=== PATIENT | female | born 1990 | race Caucasian/White ===

== ENCOUNTER → 2021-07-26 10:00 | Outpatient (BNVA) | payer OTHER, SELFPAY | PROVIDERS: PCP Nurse Practitioner Family; Visit Provider Nurse Practitioner Family | DX: F32.9 Major depressive disorder, single episode, unspecified (principal); R53.83 Other fatigue | CPT/HCPCS: 80053; 80061; 82306; 82607; 83036; 84443 ==

== ENCOUNTER 2021-11-25 11:59 | Outpatient (CLI) | payer OTHER, SELFPAY ==
--- NOTE | 2021-11-25 12:05 | XR_ITS ---
WS: [id number] Exam: XR lumbar spine 2-3V* [id number] Date/Time of Exam: 11/25/2021 12:05 PM Reason For Exam: Back pain Comparison 12/29/2008. No fracture or dislocation. Disc spaces are preserved. Posterior elements are intact. Slight levoscol iosis that is probably positional. Spinous and transverse processes are normal in appearance. XR/XR lumbar spine 2-3V* [id number] IMPRESSION: 1. Unremarkable lumbar spine study.
== END 2021-11-25 12:00 | disposition home or self-care (01) ==
LOC: RAD 12:05
PROVIDERS: PCP Nurse Practitioner Family; Visit Provider Nurse Practitioner Family
DX: M54.50 Low back pain, unspecified (principal)
CPT/HCPCS: 72100

== ENCOUNTER 2021-12-02 12:21 | Outpatient (CLI) | payer OTHER, SELFPAY ==
--- NOTE | 2021-12-02 | MRR_ITS ---
PROCEDURE INFORMATION: Exam: MR Lumbar Spine Without Contrast Exam date and time: 12/02/2021 5:56 PM Age: 31 years old Clinical indication: Low back pain and lumbago with sciatica; Patient HX: PT describes acute low back pain that turned unbearable overnight. Sever pain into her legs. ; Additional info: Lbp TECHNIQUE: Imaging protocol: Multiplanar magnetic resonance images of the lumbar spine without intravenous contrast. COMPARISON: CR XR lumbar spine 2-3V* [id number] 11/25/2021 12:07 PM FINDINGS: Vertebrae: The vertebral body alignment and stature is maintained. No fracture or subluxation. Mild degenerative endplate signal changes at L5-S1. Spinal cord: Normal signal. No cord compression. L1-L2: No significant disc disease. No significant spinal canal stenosis. No neural foraminal stenosis. L2-L3: No significant disc disease. No significant spinal canal stenosis. No neural foraminal stenosis. L3-L4: Mild posterior disc bulge with a small central disc protrusion. No foraminal stenosis. Mild central canal stenosis. L4-L5: Mild posterior disc bulge with small central disc protrusion. No foraminal stenosis. Mild central canal stenosis. L5-S1: Large left paracentral protrusion with cranial extrusion measuring 1.3 cm in length. Moderate stenosis of the central left neural foramen. No right foraminal stenosis. Moderate-severe central canal stenosis. Soft tissues: Unremarkable. Technique issues: The axial T2 sequence is not properly synchronized with the sagittal sequences, possibly due to patient movement or a technical error. The axial images do not extend through the L5-S1 level. The patient would not allow the study to be completed due to severe pain. MR/MR lumbar spine wo con* [id number] IMPRESSION: 1. Large left paracentral disc protrusion at L5-S1 with a large cranial extrusion. This contributes to moderate-severe central canal stenosis and moderate stenosis of the central left neural foramen. 2. Evaluation of the L5-S1 level is incomplete with no axial images through this region. The study was discontinued early due to severe patient pain. Repeat axial images through the L5-S1 region is recommended, when patient is able. 3. Small central disc protrusions at L3-L4 and L4-L5.
== END 2021-12-02 12:22 | disposition home or self-care (01) ==
LOC: RAD 12:23 → RADSHAW 12:24
PROVIDERS: PCP Nurse Practitioner Family; Visit Provider Nurse Practitioner Family
DX: M54.16 Radiculopathy, lumbar region (principal); M51.27 Other intervertebral disc displacement, lumbosacral region; M51.26 Other intervertebral disc displacement, lumbar region
CPT/HCPCS: 72148

== ENCOUNTER 2021-12-02 14:09 | Emergency (ER) | payer OTHER, SELFPAY ==
[2021-12-02 14:13] VITALS: PULSE 126; RESP 16; TEMP 36.7; O2SAT 94
[2021-12-02] MEDS: ketorolac 30 mg/mL INJ IVP (14:59)
[2021-12-02] MEDS: ondansetron 2 mg/ML SDV 2 mL 4 MG IVP (15:00)
[2021-12-02] MEDS: orphenadrine 30 mg/mL Inj 2 mL 60 MG IVP (15:04)
[2021-12-02] MEDS: dexamethasone 10 mg/mL INJ IVP (15:05)
--- NOTE | 2021-12-02 15:40 | W.ED.BACK ---
HPI - Back Pain/Injury General: Chief Complaint: Back Pain/Injury Stated Complaint: back pain Time Seen by Provider: 12/02/21 14:36 History of Present Illness: 31-year-old female presents emergency room with right leg radicular pain she has noticed a foot drop as well as numbness and tingling and shooting pains leg. This been going on for some time she was to have an MRI today and her back pain became severe she could not tolerate lying in the MRI presented to the emergency room. She has been given steroids recently which seemed to help briefly she is on a Medrol Dosepak and her pain is been worsening. She not previous any surgery no recent traumatic injury. MD elicited complaint: back pain Pertinent past history: prior back pain Onset (ago): week(s) Timing: intermittent Severity: severe Similar Symptoms Previously: Yes Quality: sharp Location: lumbar spine Radiation: right upper leg and right leg below the knee Exacerbating factors: none Relieving factors: none Associated symptoms: Reports tingling/numbness/burning and weakness; Deny abdominal pain, arthralgias, chills, change in bowel habits, difficulty walking, dysuria, fatigue, fecal incontinence, fever(s), hematuria, myalgias, nausea, numbness, syncope, urinary frequency, urinary urgency or vomiting Treatments prior to arrival: NSAIDS and other medications (Steroids muscle relaxer) Review of Systems Const: Denies: fever(s), chills or fatigue ENMT: Denies: throat pain, ear or mastoid pain, nasal discharge or nasal congestion Card: Denies: syncope Resp: Denies: dyspnea, productive cough or non-productive cough GI: Denies: abdominal pain, nausea, vomiting, fecal incontinence or change in bowel habits : Denies: dysuria, urinary urgency or hematuria Skin/Breast: Denies: rash or pruritus Neuro: Denies: difficulty walking PFSH ED PFSH: Medical History Anxiety and depression No pertinent past medical history Surgical History H/O: Social History Smoking and tobacco status: former smoker History of recent travel: No Physical Exam Const: COMMON NORMALS: no acute distress GENERAL APPEARANCE: cooperative and comfortable ORIENTATION/CONSCIOUSNESS: Yes awake, Yes oriented to person, Yes oriented to place and Yes oriented to time HENMT: COMMON NORMALS: normocephalic, atraumatic and hearing grossly normal bilaterally HEAD & SCALP: normocephalic and atraumatic Neck/C-Spine: COMMON NORMALS: no JVD Resp: COMMON NORMALS: normal respiratory effort, No retractions, No use of accessory muscles and clear to auscultation bilaterally AUSCULTATION: clear to auscultation bilaterally Cardio: COMMON NORMALS: no JVD, regular rate, regular rhythm and No murmurs present (Cardio) RATE: regular rate RHYTHM: regular rhythm Extremity: COMMON NORMALS: normal to inspection, capillary refill normal, no clubbing, cyanosis or edema, no calf tenderness and no pedal edema Neuro: SENSORIUM/ORIENTATION: Yes oriented to person, Yes oriented to place and Yes oriented to time OTHER: Deep tendon reflexes +2/4 at the left patellar tendon absent at the right patellar tendon patient has significant weakness with dorsiflexion of the great toe on the left. Right dorsum plantar flexion strength is normal there is mild loss of dorsiflexion in the right foot. Sensation decreased. Skin: COMMON NORMALS: no rashes or lesions noted GENERAL SKIN EXAM: no rashes or lesions noted Course Vital Signs: Vital signs: Vital Signs Temperature 98.0 F 12/02/21 14:13 Pulse Rate 126 H 12/02/21 14:13 Respiratory Rate 16 12/02/21 14:13 Pulse Oximetry 94 12/02/21 14:13 MDM - Back Pain/Injury Medical Decision Making Patient initially was over an MRI and was unable to tolerate came here for pain control pain is improved and under control of her multiple medications given we will discharge her from the ER back to outpatients to complete her MRI outpatient prescriptions given. Medical Records I reviewed the patient's medical records. Discharge Plan Discharge Patient Disposition: Home Clinical Impression: Lumbar radiculopathy Condition: Stable Prescriptions: New hydrocodone-acetaminophen 10-325 mg tablet 1 tab PO Q6H PRN (Reason: pain) Qty: 30 0RF diclofenac sodium 75 mg tablet,delayed release (DR/EC) 75 mg PO Q12H PRN (Reason: pain) Qty: 20 0RF tizanidine 4 mg capsule 4 mg PO Q6H PRN (Reason: muscle spasticity) Qty: 30 0RF Rx Instructions: do not exceed 3 doses per 24 hrs Discontinued naproxen 500 mg tablet 500 mg PO BID Qty: 60 0RF prednisone 10 mg tablets,dose pack See Rx Instructions PO PER PKG DIR Qty: 21 0RF Rx Instructions: PO PER PKG DIR tramadol 50 mg tablet 50 mg PO Q4H PRN (Reason: pain) 7 Days Qty: 30 0RF Rx Instructions: one to two tabs every 4 hours as needed No Action Mirena 20 mcg/24 hours (6 yrs) 52 mg intrauterine device intrauterine 0RF ibuprofen 200 mg tablet 200 mg PO Q6H PRN (Reason: Pain) 0RF buspirone 7.5 mg tablet 7.5 mg PO BID Qty: 180 3RF Rx Instructions: 340 B Trintellix 10 mg tablet 10 mg PO DAILY Qty: 90 3RF lidocaine 5 % adhesive patch,medicated 2 patch topical DAILY Qty: 30 0RF Rx Instructions: leave on most painful area for up to 12 hrs hydrocodone-acetaminophen 5-325 mg tablet 1 - 2 tab PO .Q4-6H 7 Days Qty: 40 0RF Discharge Orders: Discharge ED (Routine); Ordered 12/02/21 Ordered By: Wily Cohen Referrals: Katharine Sierra FNP-C [Primary Care Provider] - Discharge Diet: Usual diet Discharge Activity: Limit activity as instructed Patient Instructions: Opioid Safety Activity Restrictions/Additional Instructions: No stooping bending or lifting. Do not carry more than 10 pounds follow-up with primary care doctor when your MRI is completed. Coding Level of Care Code ED Enterprise Resource Planning Consultant for Chg Fwd Exam Detailed
[2021-12-02] MEDS: morphine 4 mg/mL SDV 1 mL 8 MG IVP (15:51)
[2021-12-02] MEDS: morphine 4 mg/mL SDV 1 mL IVP (17:33)
[2021-12-02] MEDS: LORazepam 2 mg/mL INJ 1 mL IVP (17:33)
== END 2021-12-02 17:51 | disposition home or self-care (01) ==
PROVIDERS: Emergency Provider Family Medicine; PCP Nurse Practitioner Family
DX: M54.16 Radiculopathy, lumbar region (principal); Z87.891 Personal history of nicotine dependence
CPT/HCPCS: 96374; 96375; 96376; 99284; J1100; J1885; J2060; J2270; J2360; J2405

== ENCOUNTER 2021-12-02 18:44 | Observation (INO) | payer OTHER, SELFPAY ==
[2021-12-02 18:49] VITALS: BP 113/60; PULSE 71; RESP 14; TEMP 36.6; O2SAT 95; BMI 27.3
--- NOTE | 2021-12-02 18:53 | ED_ITS ---
HPI - Back Pain/Injury General: Chief Complaint: Back Pain/Injury Stated Complaint: back pain Time Seen by Provider: 12/02/21 18:46 History of Present Illness: Healthy 31-year-old female has been dealing with lower back pain. She was seen earlier in the ER after having not been able to tolerate an MRI scan of her lumbar spine she was set up for as an outpatient today. She was given pain medication and discharge so that she could finish her procedure. She returns after her MRI is done, with similar complaints of lower back and left lower extremity pain. She states that most of her pain in her back is gone currently, but her left lower extremity feels like a marshmallow . She has been having symptoms of foot drop as well. Pain has been uncontrollable despite pain medication. She has a significant herniation on MRI completed today MD elicited complaint: back pain Onset (ago): week(s) Timing: progressively worsening Severity: severe Quality: burning and aching Location: lumbar spine Radiation: right leg below the knee Relieving factors: medication Associated symptoms: Reports nausea, numbness and tingling/numbness/burning; Deny abdominal pain, chills, change in bowel habits, fecal incontinence, fever(s), urinary frequency, urinary urgency or vomiting Review of Systems Const: Denies: fever(s) or chills Card: Denies: chest pain or palpitations GI: Reports: nausea; Denies: abdominal pain, vomiting, fecal incontinence or change in bowel habits : Denies: urinary urgency [facility] ED PFSH: Medical History No pertinent past medical history Social History Smoking and tobacco status: former smoker History of recent travel: No Physical Exam Const: GENERAL APPEARANCE: cooperative, in distress (from pain) and ill appearing; not comfortable HENMT: COMMON NORMALS: normocephalic HEAD & SCALP: normocephalic Course Consultations: Consultation #1: maria teresa Time: 19:44 Consultation #2: dionte Time: 19:55 Vital Signs: Vital signs: Vital Signs Temperature 97.8 F 12/02/21 18:49 Pulse Rate 71 12/02/21 18:49 Respiratory Rate 14 12/02/21 18:49 Blood Pressure 113/60 12/02/21 18:49 Pulse Oximetry 95 12/02/21 18:49 MDM - Back Pain/Injury Medical Decision Making Exam is essentially unchanged from her previous ER visit. She is alert and talking. She has intractable pain. She has symptoms of weakness to her left lower extremity. She will be observed for intractable back pain. Orthopedic spine surgery has been consulted for their opinion as well Discharge Plan Discharge Patient Disposition: Placed in Observation Clinical Impression: Lumbar radiculopathy Condition: Stable Prescriptions: No Action Mirena 20 mcg/24 hours (6 yrs) 52 mg intrauterine device intrauterine 0RF ibuprofen 200 mg tablet 200 mg PO Q6H PRN0RF buspirone 7.5 mg tablet 7.5 mg PO BID Qty: 180 3RF Rx Instructions: 340 B Trintellix 10 mg tablet 10 mg PO DAILY Qty: 90 3RF lidocaine 5 % adhesive patch,medicated 2 patch topical DAILY Qty: 30 0RF Rx Instructions: leave on most painful area for up to 12 hrs tizanidine 4 mg tablet 4 mg PO TID PRN (Reason: muscle spasticity) Qty: 20 0RF prednisone 20 mg tablet 20 mg PO TID Qty: 15 0RF Rx Instructions: 20 mg 3 times daily x3 days, 20 mg twice daily x2 days, 20 mg daily x2 days Lyrica 75 mg capsule 75 mg PO BID Qty: 60 0RF hydrocodone-acetaminophen 10-325 mg tablet 1 tab PO Q6H PRN (Reason: pain) Qty: 30 0RF diclofenac sodium 75 mg tablet,delayed release (DR/EC) 75 mg PO Q12H PRN (Reason: pain) Qty: 20 0RF tizanidine 4 mg capsule 4 mg PO Q6H PRN (Reason: muscle spasticity) Qty: 30 0RF Rx Instructions: do not exceed 3 doses per 24 hrs Referrals: Katharine Sierra FNP-C [Primary Care Provider] - Coding Level of Care Code ED International Recruiter for Chg Fwd Exam Expanded Problem Focused
[2021-12-02] MEDS: morphine 4 mg/mL SDV 1 mL IVP (19:37)
[2021-12-02] MEDS: ondansetron 2 mg/ML SDV 2 mL 4 MG IVP (19:37)
--- NOTE | 2021-12-02 20:10 | PM.HP ---
Providers/Chief Complaint Primary Care Provider: Katharine Sierra, BISHOPC Chief Complaint: back pain History of Present Illness Graciela Huff is a 31 year old female with a past medical history of anxiety depression, who presents to [facility] due to uncontrolled back pain, with numbness down the left lower extremity, slight weakness of left lower extremity. Patient tells me that she had back pain for roughly a week, with mild lifting, no significant back injuries, no car accidents, she had a lumbar x-ray on the , with a Toradol shot, has been on opiates, muscle relaxers and steroids as outpatient. However her pain continued to worsen, pain with ambulation, now developing significant lower back pain, radiating left lower extremity, with numbness down the left lower extremity, with slight left foot drop and left lower extremity weakness. No saddle paresthesia. No urinary or bowel incontinence. No fevers. No paraspinal tenderness. No dysuria, no hematuria, no history of UTIs, denies being Review of Systems Const: Denies: fever(s), chills, fatigue or malaise Eyes: Denies: change in vision or blurry vision ENMT: Denies: nasal congestion Resp: Denies: dyspnea, productive cough, non-productive cough or wheezing GI: Denies: abdominal pain, nausea, vomiting, hematemesis, diarrhea, constipation, hematochezia or melena : Denies: flank pain, difficulty voiding, dysuria, urinary frequency, urinary hesitancy or urinary incontinence Musc: Reports: back pain and extremity pain; Denies: neck pain Skin/Breast: Denies: rash Neuro: Reports: numbness in extremities, weakness in extremities and sensory changes; Denies: headache(s), dizziness or vertigo Psych: Denies: anxiety or depression Endo: Denies: polyuria or polydipsia Medications/Allergies Home Medications Medication Instructions Recorded Confirmed Last Taken Type levonorgestrel 20 mcg/24 hours (6 INTRAUTERINE 07/26/21 11/25/21 Unknown History yrs) 52 mg intrauterine device (Mirena) buspirone 7.5 mg tablet 7.5 mg PO BID #180 tab 10/12/21 11/25/21 Unknown Rx vortioxetine 10 mg tablet 10 mg PO DAILY #90 tab 10/12/21 11/25/21 Unknown Rx (Trintellix) ibuprofen 200 mg tablet 200 mg PO Q6H PRN 11/25/21 11/25/21 Unknown History lidocaine 5 % topical patch 2 patch TOPICAL DAILY #30 ea 11/28/21 Unknown Rx tizanidine 4 mg tablet 4 mg PO TID PRN #20 tab 11/28/21 Unknown Rx diclofenac sodium 75 mg 75 mg PO Q12H PRN #20 tab 12/02/21 Unknown Rx tablet,delayed release hydrocodone 10 mg-acetaminophen 1 tab PO Q6H PRN #30 tab 12/02/21 Unknown Rx 325 mg tablet prednisone 20 mg tablet 20 mg PO TID #15 tab 12/02/21 Unknown Rx pregabalin 75 mg capsule (Lyrica) 75 mg PO BID #60 cap 12/02/21 Unknown Rx tizanidine 4 mg capsule 4 mg PO Q6H PRN #30 cap 12/02/21 Unknown Rx Allergies Allergy/AdvReac Type Severity Reaction Status Date / Time No Known Allergies Allergy Verified 12/02/21 14:16 PFSH Acute PFSH: Medical History (Updated 12/02/21 @ 20:21 by Rene Vidal MD) Anxiety and depression No pertinent past medical history Surgical History (Updated 12/02/21 @ 20:21 by Rene Vidal MD) H/O: Social History Smoking and tobacco status: former smoker History of recent travel: No Vitals/I&O/Wt Last Vital Signs Temp 97.8 F 12/02/21 18:49 Pulse 71 12/02/21 18:49 Resp 14 12/02/21 18:49 BP 113/60 12/02/21 18:49 Pulse Ox 95 12/02/21 18:49 Weight last 48 hrs Weight 79.379 kg Physical Exam Const: COMMON NORMALS: no acute distress and patient oriented x3 HENMT: COMMON NORMALS: normocephalic HEAD & SCALP: normocephalic Resp: COMMON NORMALS: normal respiratory effort, No retractions, No use of accessory muscles and clear to auscultation bilaterally AUSCULTATION: clear to auscultation bilaterally Cardio: COMMON NORMALS: regular rate, regular rhythm, S1 normal heart sound present and S2 normal heart sound present RATE: regular rate RHYTHM: regular rhythm HEART SOUNDS: S1 normal heart sound present and S2 normal heart sound present GI: COMMON NORMALS: Normal to inspection, nondistended, normoactive bowel sounds present, Soft to palpation, non-tender, No hepatosplenomegaly present, no masses and no bruits PALPATION: Yes Soft to palpation and Yes No hepatosplenomegaly present Back/Pelvis: GENERAL BACK: No CVA tenderness THORACIC SPINE/UPPER BACK: Yes normal to inspection, Yes thoracic ROM normal, No pain with ROM and No thoracic spinal tenderness LUMBAR SPINE/LOWER BACK: Yes normal to inspection, Yes ROM limited, Yes pain with ROM, Yes paraspinal muscle tenderness and Yes paraspinal muscle spasm Extremity: COMMON NORMALS: capillary refill normal, no clubbing, cyanosis or edema, no calf tenderness and no pedal edema Neuro: COMMON NORMALS: patient oriented x3 CRANIAL NERVES: Yes CN normal except as noted OTHER: Neurological exam, numbness and tingling extending from left thigh inner outer thigh down to the left knee, down to left ankle down to her toes of the left foot, no saddle or perianal anesthesia, no urinary or bowel incontinence, slight left foot drop, strength in lower extremity 4 out of 5, strength in the thigh 4-5 Psych: COMMON NORMALS: mental status grossly normal A&P Assessment and plan (1) Lumbar radiculopathy: Status: Acute (2) Uncontrolled pain: Status: Acute Plan lumbar radiculopathy with disc protrusion, uncontrolled pain 1. Large left paracentral disc protrusion at L5-S1 with a large cranial extrusion.? This contributes to moderate-severe central canal stenosis and moderate stenosis of the central left neural foramen. 2. Evaluation of the L5-S1 level is incomplete with no axial images through this region.? The study was discontinued early due to severe patient pain.? Repeat axial images through the L5-S1 region is recommended, when patient is able.? 3. Small central disc protrusions at L3-L4 and L4-L5.? PLAN: -dilauded 0.5mg q4hrs as needed,, flexeril 10mg q8hrs prn -continue buspar, lyrica, diclofenac -neurochecks, monitor for alarm symptoms -consult Dr. Lyman -full code -Lovenox for dvt ppx -NPO midnight Attestations Medical Necessity Statement*: patient requires hospitalization for lumbar radiculopathy, uncontrolled pain, outpatient with observation, Coding Level of Care Code Acute Eyelet Machine Operator for Pastora Fwd History Detailed Exam Detailed Medical Decision Making Moderate Complexity Diagnoses Lumbar radiculopathy M54.16 Uncontrolled pain R52 Time Spent (min) 55
[2021-12-02] MEDS: orphenadrine 30 mg/mL Inj 2 mL 60 MG IVP (20:45)
[2021-12-02] MEDS: pregabalin 75 mg Capsule PO (20:45)
[2021-12-02 22:57] VITALS: BP 107/69; PULSE 82; RESP 16; TEMP 36.9; O2SAT 93
[2021-12-02] MEDS: sodium chloride 0.9% 1,000 ML 75 ML IV (23:16)
[2021-12-02 23:17] VITALS: RESP 16
[2021-12-02] MEDS: HYDROmorphone 1 mg/mL INJ 1 mL 0.5 MG IVP (23:17)
[2021-12-02] MEDS: enoxaparin 40 mg/0.4 mL Syringe SUBCUT (23:17)
[2021-12-02] MEDS: cyclobenzaprine 10 mg Tablet PO (23:17)
[2021-12-03] VITALS (12 sets, daily range): BP systolic 105–138; BP diastolic 60–74; PULSE 57–97; RESP 14–18; TEMP 36.2–36.8; O2SAT 95–99
--- NOTE | 2021-12-03 | SCC_ITS ---
Procedure done: 1. Left L5/S1 laminectomy with partial facetectomy and diskectomy 7.2 seconds of fluoroscopic guidance, for a cumulative dose of 2.02 mGy, was provided to Dr. Lyman by the radiology department. No permanent C-shruthi images were obtained. MTDD
--- NOTE | 2021-12-03 05:06 | PC.NURSE ---
Per RN, patient not disturbed for vitals.
[2021-12-03 06:48] LABS: Basophils % 0.1 %; Eosinophils % 0.1 %; Hematocrit 40.9 % (37.0-47.0); Hemoglobin 13.6 g/dL (11.5-15.3); Lymphocytes # 2.4 10^3/uL (0.8-4.8); Lymphocytes % 17.5 %; Mean Corpuscular HGB Conc 33.3 g/dL (30.0-36.0); Mean Corpuscular Hemoglobin 30.4 pg (28.0-34.0); Mean Corpuscular Volume 91.5 fl (81-99); Mean Platelet Volume 11.5 fL (7.4-10.4); Monocytes # 0.7 10^3/uL (0.2-0.9); Monocytes % 5.1 %; Neutrophils # 10.26 10^3/uL (1.8-7.7); Neutrophils % 76.5 %; Nucleated Red Blood Cells % 0 %; Platelet Count 256 10^3/cmm (130-400); Red Blood Count 4.47 10^6/uL (4.1-5.3); Red Cell Distribution Width 12.1 % (12.1-15.1); White Blood Count 13.4 10^3/uL (4.0-10.0)
[2021-12-03 07:22] LABS: Alanine Aminotransferase 9 U/L (0-33); Albumin Level 3.6 g/dL (3.5-5.2); Alkaline Phosphatase 33 IU/L (35-105); Anion Gap 17.4 (5-19); Aspartate Amino Transferase 11 U/L (0-32); Blood Urea Nitrogen 18 mg/dL (6-20); Calcium 9.3 mg/dL (8.5-10.5); Carbon Dioxide 20 mmol/L (22-29); Chloride 102 mmol/L (98-107); Glomerular Filtration Rate 116.6 mL/min (90-130); Glucose 94 mg/dL (65-115); Magnesium 2.1 mg/dL (1.7-2.3); Osmolality Calculated 282 mOsm/kg (285-295); Phosphorus 4.1 mg/dL (2.5-4.5); Potassium 4.4 mmol/L (3.5-5.1); Sodium 135 mmol/L (136-145); Thyroid Stimulating Hormone 0.62 uIU/mL (0.27-4.20); Total Bilirubin 0.3 mg/dL (0.15-1.2); Total Protein 5.6 g/dL (6.6-8.7)
[2021-12-03] MEDS: ondansetron 2 mg/ML SDV 2 mL 4 MG IVP (07:56)
[2021-12-03] MEDS: HYDROmorphone 1 mg/mL INJ 1 mL 0.5 MG IVP (07:57)
--- NOTE | 2021-12-03 08:13 | P.CONIM_ITS ---
Providers/Reason For Consult Consulting Physician/Specialty*: Orthopedic Spine Reason for Consult*: Back and left leg pain Attending Physician: Tracey Stewart MD Primary Care Provider: EULALIA Navarrete History of Present Illness History of Present Illness Graciela Huff is a 31 year old female who presented to [facility] complaining of increased low back left lower extremity pain that is been progressively worsening over the last week. 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 She was evaluated on [facility] room 260. She continues to complain of low back pain with left leg weakness which has been constant. Medications since her admission is given her some reasonable relief. She has noticed difficulties with starting and stopping with her bowel and bladder. Denies any saddle paresthesias. Pain travels down the left leg in the L5-S1 distribution. She ranks the pain as 10 out of 10 whitout medications. Rest gives her some temporary relief, medications have given her better t emporary relief. She has tried some conservative stretching exercises leading up to this latest flareup of her low back but has been unable to tolerate the pain. An extensive review of the patient's past medical history, surgical history, allergies, medications, family history, social history, and review of systems was completed Review of Systems Const: Denies: fever(s), chills, fatigue or malaise Eyes: Denies: change in vision or blurry vision ENMT: Denies: nasal congestion Resp: Denies: dyspnea, productive cough, non-productive cough or wheezing GI: Denies: abdominal pain, nausea, vomiting, hematemesis, diarrhea, constipation, hematochezia or melena : Denies: flank pain, difficulty voiding, dysuria, urinary frequency, urinary hesitancy or urinary incontinence Musc: Reports: back pain and extremity pain; Denies: neck pain Skin/Breast: Denies: rash Neuro: Reports: numbness in extremities, weakness in extremities and sensory changes; Denies: headache(s), dizziness or vertigo Psych: Denies: anxiety or depression Endo: Denies: polyuria or polydipsia Medications/Allergies Home Medications Medication Instructions Recorded Confirmed Last Taken Type levonorgestrel 20 mcg/24 hours (07/26/21/21/22 Unknown History yrs) 52 mg intrauterine device (Mirena) buspirone 7.5 mg tablet 7.5 mg PO BID #180 tab 10/12/21 12/03/21 Unknown Rx vortioxetine 10 mg tablet 10 mg PO DAILY #90 tab 10/12/21 12/03/21 12/02/21 Rx (Trintellix) ibuprofen 200 mg tablet 200 mg PO Q6H PRN 11/25/21 12/03/21 12/02/21 History lidocaine 5 % topical patch 2 patch TOPICAL DAILY #30 ea 11/28/21 12/03/21 Unknown Rx diclofenac sodium 75 mg 75 mg PO Q12H PRN #20 tab 12/02/21 12/03/21 12/02/21 Rx tablet,delayed release hydrocodone 10 mg-acetaminophen 1 tab PO Q6H PRN #30 tab 12/02/21 12/03/21 12/02/21 Rx 325 mg tablet prednisone 20 mg tablet 20 mg PO TID #15 tab 12/02/21 12/03/21 12/02/21 Rx pregabalin 75 mg capsule (Lyrica) 75 mg PO BID #60 cap 12/02/21 12/03/21 12/02/21 Rx tizanidine 4 mg capsule 4 mg PO Q6H PRN #30 cap 12/02/21 12/03/21 12/02/21 Rx Allergies Allergy/AdvReac Type Severity Reaction Status Date / Time No Known Allergies Allergy Verified 12/02/21 14:16 Current Medications Generic Name Dose Route Start Last Admin Trade Name Jaymeq PRN Reason Stop Dose Admin Cyclobenzaprine HCl 10 mg 12/02/21 22:48 12/02/21 23:17 Cyclobenzaprine 10 Mg Tablet PO 10 mg TID PRN Administration MUSCLE SPASMS Enoxaparin Sodium 40 mg 12/02/21 23:00 12/02/21 23:17 Enoxaparin 40 Mg/0.4 Ml Syringe SUBCUT 40 mg Q24H DIYA Administration Hydromorphone HCl 0.5 mg 12/02/21 22:48 12/03/21 07:57 Hydromorphone 1 Mg/Ml Inj 1 Ml IVP 0.5 mg Q4H PRN Administration PAIN Sodium Chloride 1,000 mls @ 75 mls/hr 12/02/21 22:48 12/02/21 23:16 Sodium Chloride 0.9% IV 75 mls/hr .[id number] DIYA Administration Ondansetron HCl 4 mg 12/02/21 22:48 12/03/21 07:56 Ondansetron 2 Mg/Ml Sdv 2 Ml IVP 4 mg Q8H PRN Administration vomiting, or N/V if npo PFSH Acute PFSH: Medical History Anxiety and depression No pertinent past medical history Surgical History H/O: Social History Smoking and tobacco status: former smoker History of recent travel: No Vitals/I&O/Wt Last Vital Signs Temp 98.3 F 12/03/21 07:22 Pulse 57 L 12/03/21 07:22 Resp 17 12/03/21 07:57 BP 105/67 12/03/21 07:22 Pulse Ox 96 12/03/21 07:22 12/02/21 12/03/21 12/03/21 22:59 06:59 14:59 Intake Total 240 / 240 Balance 240 / 240 Weight last 48 hrs Weight 175 lb Physical Exam Narrative: EXAM NARRATIVE: Patient is alert and oriented x3, mild acute distress Demonstrates raising up onto heels and toes with more difficulty on the left greater than right. Exhibits normal coordination and normal stability. Moderatepalpatory or perc ussion pain throughout the paraspinous musculature of the lumbar spine. Normal sensation to light touch through all dermatomal layers of the thoracic spine. Decreased sensation light touch down leftlower extremity, normal sensation on the right. 4/5 motor strength throughout L5 and Y4polub groups. 5/5 strength throughout the right lower extremity. No palpable pain over the SI joints bilaterally. Negative Mekhi and Fabere sign. Positive straight leg raise on the left negative on the right. Skin is clear warm with normal station light touch calves are supple with no medial thigh tenderness negative Homans' sign. No palpable lymphadenopathy bilaterally. Reflexes are 2+ and symmetric about the knees and Achilles. No hyperreflexia or clonus. Downgoing Babinski's bilaterally. Dorsalis pedis and posterior tibial pulses are 2+. No palpable edema bilaterally. Const: COMMON NORMALS: patient oriented x3 HENMT: COMMON NORMALS: normocephalic HEAD & SCALP: normocephalic Resp: COMMON NORMALS: normal respiratory effort Cardio: COMMON NORMALS: regular rate and regular rhythm RATE: regular rate RHYTHM: regular rhythm GI: COMMON NORMALS: Soft to palpation PALPATION: Yes Soft to palpation : COMMON NORMALS: Yes no CVA tenderness BLADDER/KIDNEY EXAM: Yes no CVA tenderness Back/Pelvis: COMMON NORMALS: no CVA tenderness Neuro: COMMON NORMALS: patient oriented x3 Psych: COMMON NORMALS: mental status grossly normal and cooperative Data : 12/03/21 05:35 12/03/21 05:35 Other data: Independent interpretation of the MRI scan was reviewed with the patient. There is no axial cut through the L5-S1 level but on the sagittal certainly shows a large extruded fragment more central and appearing left-sided at L5-S1. There is degenerative changes through the lumbar spine with small central disc herniations at L3-4 and L4-5. A&P Assessment and plan (1) Herniated nucleus pulposus, L5-S1, left: Discussed treatment options with her which involve physical therapy, nerve glides stretching activities. Second option would be outpatient transforaminal injection to the left at L5-S1. Third option would be lumbar discectomy L5-S1. Will discuss with Dr. Lyman have him follow-up with the patient to discuss treatment options. We will keep her n.p.o. for now until she makes that decision. Status: Acute (2) Lumbosacral radiculopathy at S1: Status: Acute Coding Level of Care Code New Pt Acute Medical Technologist Prn for g Fwd Patient Type New History Problem Focused Exam Problem Focused Medical Decision Making Moderate Complexity Diagnoses Herniated nucleus pulposus, L5-S1, left M51.27 Lumbosacral radiculopathy at S1 M54.17 Time Spent (min) 30
--- NOTE | 2021-12-03 09:02 | ANES.PREANE2 ---
Pre-Anesthetic Assessment Height/Weight: Height 1.7 m Weight 79.379 kg Temp Pulse Resp BP Pulse Ox 98.3 F 57 L 17 105/67 96 12/03/21 07:22 12/03/21 07:22 12/03/21 07:57 12/03/21 07:22 12/03/21 07:22 Operation Date: 12/03/21 12:00 Proposed Procedures p Lumbar Spine Decompression(Not Applicable) - Abdirizak Lyman, DO Was Beta Compa taken within 24 hours: N/A Was Clonidine taken within 24 hours: N/A Last intake: 12/02/2021 Social Alcohol and No tobacco Exam alert, oriented x 3, clear to auscultation bilaterally and regular rate & rhythm Airway Submandibular: within normal limits Cervical ROM: within normal limits Mallampati: Class I Dentition: full History/ROS No significant complaints Pulmonary None reported CV/HEM None reported None reported Hepatic None reported GI None reported Metabolic None reported Musc/skel Herniated lumbar disc with acute canal narrowing Neuropsych Anxiety and Depression Anesthetic Plan ASA status: 2 Anesthesia: General Other: We discussed risk of post operative blindness, peripheral nerve injury, sore throat, PONV, stroke, AK, , ICU admission with breathing tube, and recall. Patient agrees to proceed with general . Medications/Allergies Home Medications Medication Instructions Recorded Confirmed Last Taken Type levonorgestrel 20 mcg/24 hours (6 INTRAUTERINE 07/26/21 11/25/21 Unknown History yrs) 52 mg intrauterine device (Mirena) buspirone 7.5 mg tablet 7.5 mg PO BID #180 tab 10/12/21 12/03/21 Unknown Rx vortioxetine 10 mg tablet 10 mg PO DAILY #90 tab 10/12/21 12/03/21 12/02/21 Rx (Trintellix) ibuprofen 200 mg tablet 200 mg PO Q6H PRN 11/25/21 12/03/21 12/02/21 History lidocaine 5 % topical patch 2 patch TOPICAL DAILY #30 ea 11/28/21 12/03/21 Unknown Rx diclofenac sodium 75 mg 75 mg PO Q12H PRN #20 tab 12/02/21 12/03/21 12/02/21 Rx tablet,delayed release hydrocodone 10 mg-acetaminophen 1 tab PO Q6H PRN #30 tab 12/02/21 12/03/21 12/02/21 Rx 325 mg tablet prednisone 20 mg tablet 20 mg PO TID #15 tab 12/02/21 12/03/21 12/02/21 Rx pregabalin 75 mg capsule (Lyrica) 75 mg PO BID #60 cap 12/02/21 12/03/21 12/02/21 Rx tizanidine 4 mg capsule 4 mg PO Q6H PRN #30 cap 12/02/21 12/03/21 12/02/21 Rx Allergies Allergy/AdvReac Type Severity Reaction Status Date / Time No Known Allergies Allergy Verified 12/02/21 14:16 Current Medications Generic Name Dose Route Start Last Admin Trade Name Freq PRN Reason Stop Dose Admin Cyclobenzaprine HCl 10 mg 12/02/21 22:48 12/02/21 23:17 Cyclobenzaprine 10 Mg Tablet PO 10 mg TID PRN Administration MUSCLE SPASMS Enoxaparin Sodium 40 mg 12/02/21 23:00 12/02/21 23:17 Enoxaparin 40 Mg/0.4 Ml Syringe SUBCUT 40 mg Q24H DIYA Administration Hydromorphone HCl 0.5 mg 12/02/21 22:48 12/03/21 07:57 Hydromorphone 1 Mg/Ml Inj 1 Ml IVP 0.5 mg Q4H PRN Administration PAIN Sodium Chloride 1,000 mls @ 75 mls/hr 12/02/21 22:48 12/02/21 23:16 Sodium Chloride 0.9% IV 75 mls/hr .[id number] DIYA Administration Ondansetron HCl 4 mg 12/02/21 22:48 12/03/21 07:56 Ondansetron 2 Mg/Ml Sdv 2 Ml IVP 4 mg Q8H PRN Administration vomiting, or N/V if npo PFSH Anesthesia Medical History Anxiety and depression No pertinent past medical history Surgical History H/O: Social History Smoking and tobacco status: former smoker History of recent travel: No Data Anesthesia : 12/03/21 05:35 12/03/21 05:35 Short CBC 12/03/21 Range/Units 05:35 WBC 13.4 H (4.0-10.0) 10^3/uL Hgb 13.6 (11.5-15.3) g/dL Hct 40.9 (37.0-47.0) % MCV 91.5 (81-99) fl Plt Count 256 (130-400) 10^3/cmm Neut % (Auto) 76.5 % Neut # (Auto) 10.26 H (1.8-7.7) 10^3/uL BMP 12/03/21 05:35 Sodium 135 L Potassium 4.4 Chloride 102 Carbon Dioxide 20 L BUN 18 Creatinine 0.6 Glucose 94 Calcium 9.3 Liver Function 12/03/21 Range/Units 05:35 Total Bilirubin 0.3 (0.15-1.2) mg/dL AST 11 (0-32) U/L ALT 9 (0-33) U/L Alkaline Phosphatase 33 L (35-105) IU/L Albumin 3.6 (3.5-5.2) g/dL Cardiac Studies: No Data to Display
--- NOTE | 2021-12-03 11:33 | PC.PT ---
Pt was going to be seen and Dr. Lyman was coming out of the room. Pt is going to surgery. Pt is not going to be seen for PT at this time.
[2021-12-03] MEDS: midazolam 1 mg/mL INJ 2 mL 2 MG (13:01)
--- NOTE | 2021-12-03 13:11 | PC.NURSE ---
1310 verbalized to Will Smart LOG HANDLING EQUIPMENT OPERATOR negative HCG results.
--- NOTE | 2021-12-03 13:57 | ANE.PACU2 ---
Inpatient post-anesthesia follow up: Vital signs: Temperature 97.4 F Pulse Rate 62 Respiratory Rate 18 Blood Pressure 111/60 Pulse Oximetry 98 Oxygen Delivery Me thod Room Air Oxygen Flow Rate Fraction of Inspir ed Oxygen
--- NOTE | 2021-12-03 14:30 | P.OP_ITS ---
Operative Report Date of procedure: December 03, 2021 Pre-op diagnosis: L5/S1 left disk herniation with radiculopathy Post-op diagnosis: same Procedure done: 1. Left L5/S1 laminectomy with partial facetectomy and diskectomy Surgeon: Abdirizak Lyman Arboreal Scientist: Tae Stanton Arboreal Scientist: The neurosurgical physician assistant, Tae Stanton, ARMAND was needed for his expertise under the microscope. He was important and necessary throughout the procedure to complete in a safe and timely manner. He assisted with patient positioning pre pping and draping tissue retraction suctioning of the operative field protection of the dural sac and tissue closure Estimated blood loss (mL): 5 Procedure: 1. Left L5/S1 laminectomy with partial facetectomy and diskectomy Patient is brought to the operative suite. After undergoing anesthesia they are placed in the prone position. All areas of impingement are well padded. Patient is then prepped and draped in the normal sterile fashion. A skin incision is made over the L5/S1 level. This is confirmed under c-arm guidance. A series of dilators are passed and the tubular retractor is docked on the L5 lamina. A bovie is used to clear the soft tissue off the lamina and the L 5/S1 facet joint. A high speed aye is then used to perform the laminectomy and take down the medial aspect of the L 5/S1 facet joint. A kerrison rongeure was then used to take down the remaining lamina and smooth the edge of the laminectomy up to the point where the ligamentum flavum attaches. Attention was then brought to the medial aspect of the facet joint. The remaining medial aspect of the superior and inferior aspect of the facet joint were taken down with the kerrison from the pedicle of L5 to S1. Attention was then brought to the Ligamentum Flavum. The ligament was taken down from the lamina of L5 to S1 and out medially to the remaining facet joint. The ligament was thick. The dura was then exposed. The dura was in good repair. The S1 nerve was identified and retracted medially a large piece of disk was removed with micropituitary. The L5 nerve was then traced with a curette out the L5/S1 foramen and found to be adequately decompressed. The S1 nerve was traced with a curette around the S1 pedicle. The lateral recess was opened with a kerrison helping to further decompress the S1 nerve. Wound is then irrigated copiously with saline and surgiflo is used to stop any bleeding. The tubular retractor is removed and the wound is closed with vicryl and monocryl suture. Glue is then used to protect the wound. A sterile dressing is then placed. Patient was then placed in the supine position and transferred to the PACU in stable condition.
--- NOTE | 2021-12-03 16:20 | PC.CHAP ---
Pastoral Care Encounter/Spiritual Assessment Type of Contact [] Declined reel film inspector visit [] Patient/Family/Request visit [] Outpatient visit [] Follow-up visit [] Physician referral [] Code/Alert [] Routine visit [] Staff referral [] Actively dying [] Patient sleeping [] Family support [] [] Out of room [] Palliative care [] [XX] Receiving care in room [] Pre-surgical visit [] Trauma [] Long length of stay [] ICU visit [] Other: Relational/Emotional Strength [] Patient feels connected with others/family/visitors/staff [] Distress [] Loneliness/isolation [] Abandonment Spirituality of Patient [] Person of Sara [] Attends Samaritan of their Sara [] Believes in Prayer [] Reads Bible or Jewish materials [] There are Spiritual issues to be addressed Landscaper Interventions [] Prayer [] Active listening [] Non-anxious presence [] Spiritual/emotional support [] Crisis/trauma care [] Spiritual counseling [] Bereavement support [] Provided bereavement packet [] Provided Bible/devotional materials [] Provided toy/stuffed animal, coloring book to patient or family member [] Provided Communion [] Anointing/[place] [] Salvation [] Completed spiritual assessment [] Other: Impact on Illness or Injury [] Angry [] Fearful [] Anxious [] Often cries [] Exhaustion [] Unable to work [] Unable to attend caodaism [] Unable to walk/stand [] Unable to read [] Unable to drive [] Unable to eat/drink [] Unable to sleep [] Unable to be with family [] Patient intubated [] Other: Summary Time spent with patient
--- NOTE | 2021-12-03 18:08 | PM.DCS ---
Discharge Providers Date of Admission: 12/02/21 19:57 Date of Discharge: December 03, 2021 Attending Provider at Admission: Rene Vidal MD Attending Provider at Discharge: Tracey Stewart MD Primary Care Provider: EULALIA Navarrete Diagnoses at Discharge Discharge Diagnosis (1) Herniated nucleus pulposus, L5-S1, left: Status: Acute (2) Lumbosacral radiculopathy at S1: Status: Acute Reason for Visit Reason for Visit: back pain Hospital Course Hospital Course 31 year old female with a past medical history of anxiety, depression, presented to [facility] due to uncontrolled back pain, with numbness down the left lower extremity, slight weakness of left lower extremity. She was found to have Large left paracentral disc protrusion at L5-S1 with a large cranial extrusion. She underwent left L5/S1 laminectomy with partial facetectomy and diskectomy earlier today. She feel simproved after surgery, is able to ambulate independently, passing gas and able to urinate without difficulty. Has residual left lateral leg parasthesias but states that this is improving. She is eager to return home. Discussed with Dr. Lyman- there is no contraindication to discharge from a surgical or medicine standpoint at this time. To return to ER in case of urinary or bowel incontinence, saddle anesthesia, worsening LE weakness. Physical Exam Narrative: EXAM NARRATIVE: GEN: Awake, alert and oriented, no acute distress CVS: S1S2 N Abd: Soft, nt/nd ORTHOPEDICS NURSE: leg lateral leg parasthesias, mild foot drop Discharge Data Studies Completed and Pending Pending at discharge Category Date Time Status C-arm Fluoroscopy [id number] Routine Exams 12/03/21 13:12 Ordered Complete Blood Count w/Auto AM LABS Lab 12/04/21 04:00 Ordered Complete Blood Count w/Auto AM LABS Lab 12/05/21 04:00 Ordered Comprehensive Metabolic Panel AM LABS Lab 12/04/21 04:00 Ordered Comprehensive Metabolic Panel AM LABS Lab 12/05/21 04:00 Ordered Magnesium AM LABS Lab 12/04/21 04:00 Ordered Magnesium AM LABS Lab 12/05/21 04:00 Ordered Phosphorus AM LABS Lab 12/04/21 04:00 Ordered Phosphorus AM LABS Lab 12/05/21 04:00 Ordered Laboratory Results WBC 13.4 10^3/uL (4.0-10.0) H 12/03/21 05:35 RBC 4.47 10^6/uL (4.1-5.3) 12/03/21 05:35 Hgb 13.6 g/dL (11.5-15.3) 12/03/21 05:35 Hct 40.9 % (37.0-47.0) 12/03/21 05:35 MCV 91.5 fl (81-99) 12/03/21 05:35 MCH 30.4 pg (28.0-34.0) 12/03/21 05:35 MCHC 33.3 g/dL (30.0-36.0) 12/03/21 05:35 RDW 12.1 % (12.1-15.1) 12/03/21 05:35 Plt Count 256 10^3/cmm (130-400) 12/03/21 05:35 MPV 11.5 fL (7.4-10.4) H 12/03/21 05:35 Neut % (Auto) 76.5 % 12/03/21 05:35 Lymph % (Auto) 17.5 % 12/03/21 05:35 [place] % (Auto) 5.1 % 12/03/21 05:35 Eos % (Auto) 0.1 % 12/03/21 05:35 Baso % (Auto) 0.1 % 12/03/21 05:35 Neut # (Auto) 10.26 10^3/uL (1.8-7.7) H 12/03/21 05:35 Lymph # (Auto) 2.4 10^3/uL (0.8-4.8) 12/03/21 05:35 [place] # (Auto) 0.7 10^3/uL (0.2-0.9) 12/03/21 05:35 Eos # (Auto) 0.0 10^3/uL (0.0-0.8) 12/03/21 05:35 Baso # (Auto) 0.0 10^3/uL (0.0-0.1) 12/03/21 05:35 Nucleated RBC % (auto) 0 % 12/03/21 05:35 Nucleated RBCs # 0.0 /100WBC 12/03/21 05:35 Sodium 135 mmol/L (136-145) L 12/03/21 05:35 Potassium 4.4 mmol/L (3.5-5.1) 12/03/21 05:35 Chloride 102 mmol/L (98-107) 12/03/21 05:35 Carbon Dioxide 20 mmol/L (22-29) L 12/03/21 05:35 Anion Gap 17.4 (5-19) 12/03/21 05:35 BUN 18 mg/dL (6-20) 12/03/21 05:35 Creatinine 0.6 mg/dL (0.5-0.9) 12/03/21 05:35 GFR Calculation 116.6 mL/min (90-130) 12/03/21 05:35 Glucose 94 mg/dL (65-115) 12/03/21 05:35 Calculated Osmolality 282 mOsm/kg (285-295) L 12/03/21 05:35 Calcium 9.3 mg/dL (8.5-10.5) 12/03/21 05:35 Phosphorus 4.1 mg/dL (2.5-4.5) 12/03/21 05:35 Magnesium 2.1 mg/dL (1.7-2.3) 12/03/21 05:35 Total Bilirubin 0.3 mg/dL (0.15-1.2) 12/03/21 05:35 AST 11 U/L (0-32) 12/03/21 05:35 ALT 9 U/L (0-33) 12/03/21 05:35 Alkaline Phosphatase 33 IU/L (35-105) L 12/03/21 05:35 Total Protein 5.6 g/dL (6.6-8.7) L 12/03/21 05:35 Albumin 3.6 g/dL (3.5-5.2) 12/03/21 05:35 Globulin 2.0 g/dL (1.3-4.6) 12/03/21 05:35 TSH 0.62 uIU/mL (0.27-4.20) 12/03/21 05:35 Vitals Last Vital Signs Temp 97.5 F L 12/03/21 16:12 Pulse 63 12/03/21 16:12 Resp 18 12/03/21 16:12 BP 111/70 12/03/21 16:12 Pulse Ox 95 12/03/21 16:12 Discharge Plan Discharge Patient Disposition: Home Condition: Stable Prescriptions: New hydrocodone-acetaminophen 5-325 mg tablet 1 - 2 tab PO .Q4-6H Qty: 40 0RF Continued Mirena 20 mcg/24 hours (6 yrs) 52 mg intrauterine device intrauterine 0RF ibuprofen 200 mg tablet 200 mg PO Q6H PRN (Reason: Pain) 0RF buspirone 7.5 mg tablet 7.5 mg PO BID Qty: 180 3RF Rx Instructions: 340 B Trintellix 10 mg tablet 10 mg PO DAILY Qty: 90 3RF lidocaine 5 % adhesive patch,medicated 2 patch topical DAILY Qty: 30 0RF Rx Instructions: leave on most painful area for up to 12 hrs hydrocodone-acetaminophen 10-325 mg tablet 1 tab PO Q6H PRN (Reason: pain) Qty: 30 0RF diclofenac sodium 75 mg tablet,delayed release (DR/EC) 75 mg PO Q12H PRN (Reason: pain) Qty: 20 0RF tizanidine 4 mg capsule 4 mg PO Q6H PRN (Reason: muscle spasticity) Qty: 30 0RF Rx Instructions: do not exceed 3 doses per 24 hrs Discontinued prednisone 20 mg tablet 20 mg PO TID Qty: 15 0RF Rx Instructions: 20 mg 3 times daily x3 days, 20 mg twice daily x2 days, 20 mg daily x2 days pregabalin [Lyrica] 75 mg capsule 75 mg PO BID Qty: 60 0RF Discharge Orders: Discharge Order (Routine); Ordered 12/03/21 Ordered By: Tracey Stewart Referrals: Katharine Sierra FNP-C [Primary Care Provider] - 7-10 days (Please call Sunday to make a follow up appointment ) Abdirizak Lyman DO [Physician] - 2 weeks (Please call Sunday to make a follow up appointment. ) Discharge Diet: Advance as tolerated Discharge Activity: Limit activity as instructed Patient Instructions: Opioid Safety Activity Restrictions/Additional Instructions: Thank you for [facility] for your care! The following is a list of instructions, from your provider, to follow upon your discharge to ensure you have the optimal recovery from your recent injury orsurgery. Follow-up care is a calvin part of your treatment and safety. Be sure to make and go to all appointments, and call your doctor if you are having problems. If you do not already have a follow-up appointment made, call Dr. Lyman office in the next 1-3 days to make follow up appointment for 2 weeks at [phone]. It is also a good idea to know your test results and keep a list of the medicines you take. Medications will be prescribed for you at your provider's discretion. These medications are to be used as instructed; if they are taken more often that prescribed they will not be refilled early and in most cases will not be refilled at all. > When a refill is needed,you should contact jihan villalobos 2-3 business days before your prescription runs out. Medications will NOT be refilled by buttonhole marker providers after hours! > Many pain medications contain Tylenol (Acetaminophen). Do not consume more than 4,000 mg of Tylenol per day in total with any combination ofmedications. > Pain medications can cause constipation. Please use an over the counter stool softener as directed, while taking pain medications. Consulty our local pharmacist with questions or recommendations on stool softeners. If constipation persists, contact our office or your primary care provider. > While under our care,you are not to receive pain medications or other controlled substances from any other provider unless our office is notified and approves. Any attempts to do so will result in refusal to prescribe any further pain medications and possible dismissal from our practice. ? Your wound and/or dressing should remain clean and dry for 2 days after surgery. On postoperative day 2 (48 hours after your surgery) the dressing (if present) should be removed and it is okay to shower and get the incision wet. Pad dry afterwards. No further dressing should be required from that point on. Do not put any creams or ointments on theincision > It is normal for there to be a small amount of discharge (bloody or blood tinged) present from a surgical wound for the first 1-3days. > The wound should be examined twice a day for signs of infection. Mild redness or bruising is to be expected but indications that an infection maybe starting would include; An increase in redness, swelling, or discharge, a foul odor present around the incision, and/or a fever greater than 101 ?F ? Showering is permitted, however we ask that you do not take a bath, sit in a whirlpool / Jacuzzi, or go swimming for 1 month. For only the first 2 days after surgery, lt wilt be necessary for you to cover your wound/dressing with plastic and tape to keep it dry. ? Walking is essential for the healing process after surgery. We would like you to slowly advance your walking. This should be done on relatively flat clear ground (inside or out) or can be done on a treadmill. Remember this goal does not have to happen all at once, slowly increase your distance and duration. This can be broken into more more than one walk per day as tolerated. Patients who walk as directed after surgery rarely require Physical Therapy. In the unlikely event this issue arises your provider will direct hospital staff to make the appropriate arrangements. ? No lifting over 5 pounds {a gallon of milk) or bending/twisting until further notice. Each of these activities places an unnecessary amount of stress onto the body and can impede the delicate healing process. > Instead of bending at the waist, keep your back straight and bend at the knees. > Instead of twisting your torso, keep your back straight and turn your entire body with your feet. ? You may sleep in any position which makes you comfortable. Many patients find comfort sleeping in a reclining chair. It is not abnormal to have difficulty sleeping for the first several weeks following your surgery. We recommend trying Benadry! or Tylenol PM as directed to help with your sleeping difficulties. Both medications are over the counter and available withoutprescription. ? NO SMOKING!!! Smoking dramatically increases the probability of developing postoperative wound infections. ? Common complaints after lumbar and/or thoracic spine surgery include, but are not limited to: numbness and/or tingling in the legs, pain around the incision and surrounding tissues, muscle spasms, or stiffness of the middle to low back. Contact our office if these symptoms persist or if an acute change occurs. ? No driving for the first 3-5days, and not while taking narcotics until seen at your follow-up appointment and cleared. There are no restrictions for riding on short trips, however if you take a longer trip, arrangements should be made to make regular stops to get out of the vehicle and stretch . ? Swelling is an unfortunate event that will take place with any surgery and is the primary source of your postoperative discomfort. While walking and regular approved activities helps control inflammation, there are additional steps you can take to minimizeswelling. > Place ice over the surgical site and surrounding tissue for twenty minutes, followed by applying a low/medium heat (heating pad) for an additional twenty minutes every 1-2 hours as needed for painrelief. > You may use of over the counter anti-inflammatory medications (Ibuprofen, Motrin, Aleve, Advil, etc) as directed on the package label. These types of medicines wm significantly reduce the amount of discomfort you experience after surgery from swelling. It should be noted that if you have and allergy to any of these medications, or a history of ulcers or kidney disease you should consult you primary care provider prior to starting these medications. Discharge Attestations Time Spent in Discharge Care*: less than 30 min Quality Metrics Clinical Quality Measures [ No reported AMI, CVA or VTE this stay] Coding Level of Care Code Acute [facility] note Diagnoses Herniated nucleus pulposus, L5-S1, left M51.27 Lumbosacral radiculopathy at S1 M54.17
--- NOTE | 2021-12-04 11:37 | ANE.PACU2 ---
Inpatient post-anesthesia follow up: Airway intact: Yes Vital signs: Temperature 97.5 F Pulse Rate 63 Respiratory Rate 18 Blood Pressure 111/70 Pulse Oximetry 95 Oxygen Delivery Me thod Room Air Oxygen Flow Rate Fraction of Inspir ed Oxygen Hydration adequate: Yes Nausea and vomiting: No Pain level: 1 Mental status: Baseline Additional Comments: Late entry for care provided on DOS
--- NOTE | 2021-12-04 14:22 | PC.SOCIAL ---
Pt discharged before assembler adjuster got to work on 12/04/21
== END 2021-12-03 19:25 | disposition home or self-care (01) ==
LOC: ER 20:16 → MEDSURG 22:14
PROVIDERS: Orthopaedic Surgery; Admitting Provider Family Medicine; Emergency Provider Emergency Medicine; PCP Nurse Practitioner Family; Visit Provider Student in an Organized Health Care Education/Training Program
PROC: (CPT 63005; principal; 2021-12-03 12:00)
DX: M51.17 Intervertebral disc disorders with radiculopathy, lumbosacral region (principal); Z79.891 Long term (current) use of opiate analgesic; Z87.891 Personal history of nicotine dependence
CPT/HCPCS: 63047; 36415; 76000; 80053; 83735; 84100; 84443; 85025; 96365; 96372; 96375; 99285; G0378; J0690; J1100; J1170; J1650; J1885; J2250; J2270; J2360; J2405; J2704; J2710; J3010; J3490; J7030

== ENCOUNTER 2022-06-29 16:36 | Outpatient (CLI) | payer OTHER, SELFPAY ==
[2022-06-29 18:16] LABS: Prealbumin 21.7 mg/dL (20-40)
== END 2022-06-29 16:37 | disposition home or self-care (01) ==
LOC: LAB 16:41
PROVIDERS: PCP Nurse Practitioner Family; Visit Provider Internal Medicine
DX: Z48.89 Encounter for other specified surgical aftercare (principal)
CPT/HCPCS: 36415; 84134

== ENCOUNTER 2023-01-14 14:18 | Emergency (ER) | payer SELFPAY ==
[2023-01-14 14:24] VITALS: TEMP 37.1; BMI 25.0
[2023-01-14] MEDS: lidocaine 1% INJ 10 mL (per mL) XX (15:03)
--- NOTE | 2023-01-14 15:06 | XRR_ITS ---
PROCEDURE INFORMATION: Exam: XR Right Hand Exam date and time: 01/14/2023 3:11 PM Age: 32 years old Clinical indication: Injury or trauma; Other: Laceration; Wound; Finger; Right; Thumb; Additional info: R thumb laceration, decreased rom TECHNIQUE: Imaging protocol: Radiologic exam of the right hand. Views: 3 or more views. COMPARISON: No relevant prior studies available. FINDINGS: Bones/joints: Negative for acute bony abnormalities. Soft tissues: Soft tissue edema is seen in the central portion of the right thumb. Bandage material is around the thumb which diminishes the soft tissue details. There is no evidence of soft tissue foreign body XR/XR hand RT min 3V* [id number] IMPRESSION: 1. No acute bone abnormality 2. Soft tissue edema mid portion of the thumb 3. Negative for soft tissue foreign body about
--- NOTE | 2023-01-14 15:09 | W.ED.WOUNDLC ---
HPI - Wound/Laceration General: Chief Complaint: Wound/Laceration Stated Complaint: finger lac Time Seen by Provider: 01/14/23 14:29 Source: patient Mode of arrival: ambulatory Limitations: no limitations History of Present Illness: 32-year-old female presents to the ER today for right thumb laceration. Patient reports she had new pruning aniyah and started to use them today when she stabbed her right thumb. She reports its at the base of her thumb. She reports some popping with range of motion and slightly decreased strength with range of motion. Denies any swelling. She reports bleeding has stopped at this time. Denies any numbness or tingling. Last tetanus was greater than 5 years ago. Review of Systems General: Reports: 10 or more systems reviewed and unremarkable except in HPI and below PFSH ED PFSH: Medical History Anxiety and depression No pertinent past medical history Surgical History H/O: Social History Smoking and tobacco status: never smoked Physical Exam Const: COMMON NORMALS: no acute distress, average body habitus, patient oriented x3, no limitations, healthy appearing, alert and well nourished Resp: COMMON NORMALS: normal respiratory effort EFFORT & INSPECTION: Yes able to speak in complete sentences Cardio: COMMON NORMALS: regular rate and regular rhythm RATE: regular rate RHYTHM: regular rhythm Extremity: NARRATIVE EXTREMITY EXAM: Patient has pretty normal range of motion of the right thumb however there is a popping sensation with flexion in addition to some decreased strength with flexion of the thumb. Cannot totally rule out tendon injury. Neuro: COMMON NORMALS: patient oriented x3 SENSORIUM/ORIENTATION: Yes alert Psych: COMMON NORMALS: mental status grossly normal, Normal thought process present and cooperative THOUGHT PROCESS: Normal thought process present Skin: NARRATIVE SKIN EXAM: 1 cm laceration to the base of the right thumb. No active bleeding. No foreign body. Procedures Laceration Laceration 1: Site: hand Side (If applicable): right Size (cm): 1 Description: linear Depth: simple, single layer Local Anesthetic: lidocaine 1% Amount of anesthesia used (mL): 1 Pre-repair: wound explored and irrigated extensively Skin layer closed with: other (ethilon) Size (cm): 4-0 Number of sutures: 1 Technique: simple, interrupted Course ED course: 32-year-old female presents to the ER today for right thumb laceration. This occurred just prior to arrival when she was using pruning aniyah. Patient reports bleeding has stopped at this time. Last tetanus shot is unknown. We will close this with sutures. We will also get an x-ray given the decreased range of motion. Vital Signs: Vital signs: Vital Signs Temperature 98.8 F 01/14/23 14:24 Oxygen Delivery Me thod 01/14/23 14:24 MDM - Wound/Laceration Medical Decision Making See laceration note. Tdap given today. Patient tolerated the procedure well. X-ray appears normal. Wound care was discussed. Follow-up in 7 to 10 days for suture removal. We also discussed that if patient's range of motion and strength does not return after several days, I would recommend she follow-up with a hand specialist. It is not an emergent issue and I would recommend we wait until all swelling has resolved. Watch for signs of infection including redness, swelling, drainage. Follow-up with PCP in 7 to 10 days. Return to the ER with new or worsening symptoms. Patient verbalized understanding and was in agreement with the treatment plan. Critical Care Time Critical Care Time: Critical Care Time: No Discharge Plan Discharge Patient Disposition: Home Clinical Impression: Laceration of thumb Qualifiers: Encounter type: initial encounter Damage to nail status: without damage Foreign body presence: without foreign body Laterality: right Qualified Code(s): S61.011A - Laceration without foreign body of right thumb without damage to nail, initial encounter Condition: Stable Prescriptions: No Action Mirena 20 mcg/24 hours (6 yrs) 52 mg intrauterine device intrauterine ibuprofen 200 mg tablet 200 mg PO Q6H PRN (Reason: Pain) Trintellix 20 mg tablet 20 mg PO DAILY Qty: 90 3RF buspirone 7.5 mg tablet 7.5 mg PO BID Qty: 180 3RF Rx Instructions: 340 B Discharge Orders: Discharge ED (Routine); Ordered 01/14/23 Ordered By: Debora Butler Referrals: Katharine Sierra FNP-C [Primary Care Provider] - Discharge Diet: Usual diet Discharge Activity: Resume usual activity Patient Instructions: Opioid Safety, Pain Management Activity Restrictions/Additional Instructions: Keep wound clean and dry. Change dressing every 24 hours. Follow-up PCP in 7 to 10 days for suture removal. If decreased range of motion persists, follow-up with hand specialist. Return to the ER with new or worsening symptoms. Coding Level of Care Code ED Head Baggage Porter for Pastora Chapa
[2023-01-14] MEDS: tetanus-dipt-pertussis 0.5 mL SDV IM (15:13)
--- NOTE | 2023-01-16 16:15 | DCPLANNER ---
TCM called patient due to no primary care physician - patient stated that she sees Dr. Smith.
== END 2023-01-14 15:23 | disposition home or self-care (01) ==
PROVIDERS: Emergency Provider Physician Assistant
DX: S61.011A Laceration without foreign body of right thumb without damage to nail, initial encounter (principal); W26.8XXA Contact with other sharp object(s), not elsewhere classified, initial encounter; Z23 Encounter for immunization
CPT/HCPCS: 12001; 73130; 90471; 90715; 99283

== ENCOUNTER 2023-07-20 16:37 | Emergency (ER) | payer OTHER, SELFPAY ==
[2023-07-20 16:42] VITALS: BP 135/74; PULSE 107; RESP 18; TEMP 36.9; O2SAT 99; BMI 24.3
--- NOTE | 2023-07-20 16:42 | ED_ITS ---
HPI - General Adult General: Stated complaint: needle stick Time Seen by Provider: 07/20/23 16:39 Source: patient Mode of arrival: ambulatory Limitations: no limitations History of Present Illness: 32-year-old female who was given an injection to the patient here when she went to close the needle she had accidentally stuck herself on the right palm. She denies any pain denies any other injuries at this time Review of Systems Musc: Denies: extremity pain PFSH ED PFSH: Medical History Anxiety and depression No pertinent past medical history Surgical History H/O: Social History Smoking and tobacco status: never smoked Physical Exam Const: COMMON NORMALS: no acute distress and patient oriented x3 HENMT: COMMON NORMALS: normocephalic and atraumatic HEAD & SCALP: normocephalic and atraumatic Eye: COMMON NORMALS: conjunctivae normal CONJUNCTIVA: Yes conjunctivae normal Chest: COMMONS NORMALS: normal inspection of the chest Extremity: OTHER: Small puncture wound noted to right palm no bleeding at this time Neuro: COMMON NORMALS: patient oriented x3 Psych: COMMON NORMALS: mental status grossly normal Skin: COMMON NORMALS: no rashes or lesions noted GENERAL SKIN EXAM: no rashes or lesions noted [facility] - General Adult Medical Decision Making Patient presents after an accidental needlestick to her right hand she has no bleeding at this time we will get blood work per policy she is stable for discharge Medical Records I reviewed the patient's medical records. No radiology studies performed this visit Discharge Plan Discharge Patient Disposition: Home Clinical Impression: Needlestick injury accident Condition: Stable Prescriptions: No Action Mirena 20 mcg/24 hours (6 yrs) 52 mg intrauterine device intrauterine ibuprofen 200 mg tablet 200 mg PO Q6H PRN (Reason: Pain) Trintellix 20 mg tablet 20 mg PO DAILY Qty: 90 3RF buspirone 7.5 mg tablet 7.5 mg PO BID Qty: 180 3RF Rx Instructions: 340 B Discharge Orders: Discharge ED (Routine); Ordered 07/20/23 Ordered By: Gama Wilson Discharge Diet: Advance as tolerated Discharge Activity: Resume usual activity Patient Instructions: Needle Stick Injuries (ED) Coding Level of Care Code ED Head Golf Coach for Pastora Chapa
[2023-07-20 17:43] LABS: Hepatitis A Antibody IgM Non-Reactive (Nonreactive); Hepatitis B Core AB, Total Non-Reactive (Nonreactive); Hepatitis B Surface Antigen Non-Reactive (Nonreactive); Hepatitis C Virus Antibody Non-Reactive (Nonreactive)
[2023-07-20 17:49] LABS: HIV 1 & 2 Antibody Non-Reactive (Non-Reactiv); HIV 1 & 2 Antigen Non-Reactive (Non-Reactiv)
[2023-07-20 18:02] LABS: Hepatitis B Surface AB > 1000.0 (11.5-1000)
== END 2023-07-20 17:25 | disposition home or self-care (01) ==
PROVIDERS: Emergency Provider Emergency Medicine; PCP Internal Medicine
DX: S61.431A Puncture wound without foreign body of right hand, initial encounter (principal); W46.1XXA Contact with contaminated hypodermic needle, initial encounter; Y99.0 Civilian activity done for income or pay
CPT/HCPCS: 36415; 86705; 86706; 86709; 86803; 87340; 87806; 99283

== ENCOUNTER 2024-07-21 19:28 | Outpatient (CLI) | payer SELFPAY ==
[2024-07-21 20:35] LABS: HIV 1 & 2 Antibody Non-Reactive (Non-Reactiv); HIV 1 & 2 Antigen Non-Reactive (Non-Reactiv)
[2024-07-21 23:01] LABS: Hepatitis B Surface Antigen Non-Reactive (Nonreactive); Hepatitis C Virus Antibody Non-Reactive (Nonreactive)
[2024-07-21 23:21] LABS: Hepatitis B Surface AB > 1000.0 (11.5-1000)
== END 2024-07-21 19:29 | disposition home or self-care (01) ==
LOC: LAB 19:32 → ER 19:37
PROVIDERS: Family Medicine; PCP Internal Medicine; Visit Provider Emergency Medicine
DX: S69.91XA Unspecified injury of right wrist, hand and finger(s), initial encounter (principal); W46.0XXA Contact with hypodermic needle, initial encounter
CPT/HCPCS: 86706; 86803; 87340; 87806

== ENCOUNTER → 2024-07-24 11:38 | Outpatient (BNVA) | payer SELFPAY | PROVIDERS: PCP Internal Medicine; Visit Provider Family Medicine | DX: F32.1 Major depressive disorder, single episode, moderate (principal) | CPT/HCPCS: 80053; 80061; 84439; 84443; 85025 ==

== ENCOUNTER 2024-11-04 09:44 | Emergency (ER) | payer OTHER, SELFPAY ==
[2024-11-04 09:51] VITALS: PULSE 108; RESP 18; TEMP 37.2; O2SAT 96
[2024-11-04 10:09] VITALS: BP 153/87; PULSE 108; RESP 18; TEMP 37.2; O2SAT 96
[2024-11-04] MEDS: tetanus-dipt-pertussis 0.5 mL SDV IM (10:16)
--- NOTE | 2024-11-04 10:49 | W.ED.WOUNDLC ---
HPI - Wound/Laceration General: Chief Complaint: Wound/Laceration Stated Complaint: rt index finger lac Time Seen by Provider: 11/04/24 09:55 History of Present Illness: 34-year-old female presents emergency room with a laceration to her right index finger across the middle phalanx she is able to flex and extend it was a kitchen accident. She is up-to-date on her tetanus Related Data Home Medications Medication Instructions Recorded Confirmed levonorgestrel 21 mcg/24 hr (up to 1 device intrauterine .Q6Y 07/26/21 11/04/24 8 years) 52 mg intrauterine device (Mirena) cetirizine 10 mg tablet (Zyrtec) 10 mg PO DAILY PRN Allergies 04/24/24 11/04/24 Previous Rx's Medication Instructions Recorded buspirone 7.5 mg tablet 7.5 mg PO BID #120 tabs 07/24/24 fluoxetine 20 mg tablet 20 mg PO DAILY #90 tabs 07/24/24 mupirocin 2 % topical ointment 1 applic topical BID #15 grams 11/04/24 Allergies Allergy/AdvReac Type Severity Reaction Status Date / Time No Known Allergies Allergy Verified 07/24/24 11:12 PFSH ED PFSH: Medical History Seasonal allergies ADHD Generalized anxiety disorder Moderate major depression No pertinent past medical history Surgical History S/P ACL surgery History of back surgery H/O breast augmentation H/O: Social History Smoking and tobacco/nicotine status: never used tobacco/nicotine Alcohol intake: current Substance/Drug Use: current Adopted: No service: No Current occupational exposures/hazards: No Physical Exam Extremity: OTHER: Laceration of the right index finger on the flexor surface of the middle phalanx. Flexion against resistance is intact. Procedures Laceration Laceration 1: Side (If applicable): right Size (cm): 1.5 Description: linear Depth: simple, single layer Skin layer closed with: other Size (cm): 5-0 Number of sutures: 2 Technique: simple, interrupted Course Vital Signs: Vital signs: Vital Signs Temperature 98.9 F 11/04/24 10:09 Pulse Rate 108 H 11/04/24 10:09 Respiratory Rate 18 11/04/24 10:09 Blood Pressure 153/87 11/04/24 10:09 Pulse Oximetry 96 11/04/24 10:09 [facility] - Wound/Laceration Medical Decision Making Wound closed with 2 Prolene sutures wound care instructions given remove sutures in 7 to 10 days apply topical antibiotic ointment to the wound No radiology studies performed this visit Discharge Plan Discharge Patient Disposition: Home Clinical Impression: Laceration Condition: Stable Prescriptions: New mupirocin 2 % ointment 1 applic topical BID Qty: 15 0RF No Action Mirena 20 mcg/24 hours (6 yrs) 52 mg intrauterine device 1 device intrauterine .Q6Y cetirizine [Zyrtec] 10 mg tablet 10 mg PO DAILY PRN (Reason: Allergies) fluoxetine 20 mg tablet 20 mg PO DAILY Qty: 90 1RF buspirone 7.5 mg tablet 7.5 mg PO BID Qty: 120 1RF Discharge Orders: Discharge ED (Routine); Ordered 11/04/24 Ordered By: Wily Cohen Referrals: Pravin Smith MD [Primary Care Provider] - Discharge Diet: Usual diet Discharge Activity: Increase activity as tolerated Patient Instructions: Laceration (ED), Opioid Safety, Pain Management Activity Restrictions/Additional Instructions: Thank you for choosing [facility] for your healthcare needs today. It is very important that you follow up as instructed or that you return to the Emergency Department should you have concerns or if your condition changes or worsens in any way. You were seen after lacerating ER right index finger. 2 sutures were applied to close the laceration. Sutures should be removed in 7 to 10 days by your primary care doctor. Apply topical antibiotic ointment to the wound twice a day keep covered whenever you are working with your hands. Coding Level of Care Code ED Nursing Home Social Worker for Pastora Chapa
== END 2024-11-04 12:03 | disposition home or self-care (01) ==
PROVIDERS: Emergency Provider Family Medicine; PCP Internal Medicine
DX: S61.210A Laceration without foreign body of right index finger without damage to nail, initial encounter (principal); X58.XXXA Exposure to other specified factors, initial encounter
CPT/HCPCS: 12001; 90471; 90715; 99283

== ENCOUNTER 2024-11-24 14:32 | Outpatient (CLI) | payer OTHER, SELFPAY ==
--- NOTE | 2024-11-24 14:30 | MR_ITS ---
WS: [id number] MRI LUMBAR SPINE NONCONTRAST TECHNIQUE: Sagittal T1, T2 and STIR imaging. Axial T1 and T2 imaging. CLINICAL INFORMATION: Back Pain COMPARISON: MRI 2021 FINDINGS: Mild lumbar curve. No acute compression. Disc bulging worse at L4-L5 and L5-S1. History of prior L5-S 1 laminectomy. L1-L2: Mild facet arthropathy. L2-L3: Mild facet arthropathy. Spinal canal and foramen are patent. L3-L4: Mild annular bulging. Tiny annular tear. Slight impingement on the traversing LEFT greater jennifer n RIGHT L4 nerve roots. Mild facet arthropathy. Foramen are patent. L4-L5: Mild annular bulging. Shallow central protrusion with slight impingement of traversing L5 nerv e roots bilaterally. Mild central canal stenosis. This appears slightly progressed compared to previo us. Foramen are patent. L5-S1: Suspected recurrent disc extrusion measuring approximately 12 x 17 mm AP by craniocaudal. Effa cement of the ventral thecal sac with slight impingement on traversing S1 nerve roots bilaterally. Mi ld central canal stenosis. Some this may represent postoperative granulation tissue. Visualized pelvic bony structures: Normal. Paravertebral soft tissues: Normal. Retroverted and retroflexed uterus. MR/MR lumbar spine wo con* [id number] IMPRESSION: 1. Central lobulated material L5-S1 suspicious for recurrent disc extrusion. S ome of this may present postoperative granulation tissue. This measures 12 x 17 mm. Associated impingement on the S1 nerve roots with mild central canal steno sis. Recommend correlation with clinical symptoms. This could be further evalua fatmata with gadolinium if clinically indicated. 2. Shallow central protrusion L4-5 with slight impingement traversing L5 nerve roots appears progressed compared to previous. 3. Tiny annular tear L3-4 with narrowing of the LEFT subarticular recess simil ar to the prior examination.
== END 2024-11-24 14:33 | disposition home or self-care (01) ==
LOC: RAD 14:33
PROVIDERS: PCP Internal Medicine; Visit Provider Orthopaedic Surgery
DX: M48.061 Spinal stenosis, lumbar region without neurogenic claudication (principal); M48.07 Spinal stenosis, lumbosacral region; M47.896 Other spondylosis, lumbar region; M51.26 Other intervertebral disc displacement, lumbar region; R93.89 Abnormal findings on diagnostic imaging of other specified body structures; M51.369 Other intervertebral disc degeneration, lumbar region without mention of lumbar back pain or lower extremity pain
CPT/HCPCS: 72148

== ENCOUNTER → 2024-12-23 10:49 | Outpatient (BNVA) | payer OTHER, SELFPAY | PROVIDERS: PCP Internal Medicine; Visit Provider Orthopaedic Surgery | DX: M54.9 Dorsalgia, unspecified (principal) | CPT/HCPCS: 72110 ==

== ENCOUNTER 2025-05-20 08:51 | Outpatient (CLI) | payer OTHER, SELFPAY ==
--- NOTE | 2025-05-20 08:55 | CT_ITS ---
WS: [id number] CT LUMBAR SPINE, noncontrast. HISTORY: LOW BACK PAIN TECHNIQUE: Contiguous 2.0 mm axial imaging are performed. Sagittal and coronal reformats are submitted and reviewed. All CT scans at [facility] use at least one of these dose optimization techniques: automated exposure control; mA and/or kV adjustment per patient size (includes targeted exams where dose is matched to clinical indication); or iterative reconstruction. IV contrast: None DLP: 343.76 mGy.cm COMPARISON: None available. Straightening and mild levoscoliosis lumbar spine. No fractures. Mild disc space narrowing at L5-S1. Sclerotic endplate changes at L5 and S1. L1-2: Normal. L2-3: Very shallow RIGHT proximal foraminal disc protrusion. No stenosis. L3-4: Small central disc protrusion. Mild encroachment upon the ventral thecal sac. Mild subarticular recess narrowing. L4-5: Annular disc bulging with a moderate size central disc protrusion. Disc protrusion is contiguous on the LEFT narrowing the LEFT foramen. There is mild encroachment upon the ventral thecal sac. Narrowing of the subarticular recesses. Mild bilateral foraminal stenosis. L5-S1: Mild disc bulging with endplate osteophytes encroaching upon the ventral thecal sac. Osteophytes contact the S1 nerve roots, LEFT greater than RIGHT in the subarticular recesses. Mild bilateral foraminal stenosis due to disc osteophyte disease. Lung bases are clear. CT/CT lumbar spine wo con* [id number] IMPRESSION: 1. Mild degenerative disc space narrowing with sclerosis at L5-S1. 2. Mild levoscoliosis. 3. L4-5: Large central disc protrusion extends to the LEFT. Mild encroachment upon the subarticular recesses and mild foraminal stenosis. 4. L5-S1: Vertebral body osteophytes contact the S1 nerve roots, LEFT greater than RIGHT. Mild bilateral foraminal stenosis due to disc osteophyte disease. 5. Shallow central disc protrusion at L3-4. Mild subarticular recess stenosis.
== END 2025-05-20 08:52 | disposition home or self-care (01) ==
LOC: RAD 08:52
PROVIDERS: PCP Family Medicine; Visit Provider Orthopaedic Surgery
DX: M48.07 Spinal stenosis, lumbosacral region (principal); G95.89 Other specified diseases of spinal cord; M51.370 Other intervertebral disc degeneration, lumbosacral region with discogenic back pain only; M51.26 Other intervertebral disc displacement, lumbar region; M48.061 Spinal stenosis, lumbar region without neurogenic claudication; M25.78 Osteophyte, vertebrae
CPT/HCPCS: 72131

== ENCOUNTER 2025-09-05 05:00 | Outpatient (RCR) | payer OTHER, SELFPAY | END 2025-10-04 23:59 | disposition home or self-care (01) | LOC: SPT 05:00 | PROVIDERS: PCP Family Medicine; Visit Provider Orthopaedic Surgery | DX: M54.50 Low back pain, unspecified (principal); M62.81 Muscle weakness (generalized) | CPT/HCPCS: 97110; 97161 ==

== ENCOUNTER 2025-10-05 05:00 | Outpatient (RCR) | payer OTHER, SELFPAY | END 2025-11-04 23:59 | disposition home or self-care (01) | LOC: SPT 05:00 | PROVIDERS: PCP Family Medicine; Visit Provider Orthopaedic Surgery | DX: M54.50 Low back pain, unspecified (principal); M62.81 Muscle weakness (generalized) | CPT/HCPCS: 97110 ==